=== PATIENT | female | born 1945 | race Caucasian/White ===

== ENCOUNTER 2017-06-06 10:51 | Outpatient (CLI) | payer MEDICARE, OTHER ==
--- NOTE | 2017-06-06 13:15 | XRAY Report ---
DATE OF SERVICE: 06/06/2017 COMPLETE CERVICAL SPINE: 06/06/2017 CLINICAL INDICATION: Pain, radiculopathy. FINDINGS: AP, lateral, bilateral oblique, odontoid views of the cervical spine demonstrate mild degenerative disk and facet disease. There is mild osseous neural foraminal narrowing at C6-C7 on the right. There is no evidence of fracture or subluxation. The prevertebral soft tissues are unremarkable. IMPRESSION: MILD DEGENERATIVE CHANGES, WITH OSSEOUS NEURAL FORAMINAL NARROWING AT C6-C7 ON THE RIGHT. TD: 06/06/2017 14:14
== END 2017-06-06 10:52 | disposition home or self-care (01) ==
LOC: DI 10:51
PROVIDERS: ATTEND Physician Assistant
DX: M50.323 Other cervical disc degeneration at C6-C7 level (principal); M47.9 Spondylosis, unspecified
CPT/HCPCS: 72050

== ENCOUNTER 2017-06-13 15:49 | Outpatient (CLI) | payer MEDICARE, OTHER ==
--- NOTE | 2017-06-13 22:32 | Ultrasound Preliminary Report ---
Exam: US DUPLEX LWR EXT ARTERIAL BILAT IMPRESSION: Patient arterial flow to the ankles bilaterally with no sign of stenosis. [facility] SITE ID: [id number]
--- NOTE | 2017-06-13 22:39 | Ultrasound Report ---
EXAM: BILATERAL LOWER EXTREMITY VENOUS ULTRASOUND EXAM DATE: 06/13/2017 06:14 PM. CLINICAL HISTORY: Pain. Pulses, radiculopathy, site unspec. COMPARISON: None. TECHNIQUE: Real-time sonographic vascular imaging was performed by the brick shader through the lower extremities utilizing both color-flow and Doppler spectral analysis. Multiple tax compliance representative static i mages were saved for review. FINDINGS: Right: Common Femoral Vein (CFV): Normal. CFV-GSV Junction: Normal. Profunda Femoral Vein (PFV): Normal. Femoral Vein (FV) Prox: Normal. Femoral Vein (FV) Mid: Normal. Femoral Vein (FV) Dist: Normal. Popliteal Vein: Normal. Posterior Tibial Veins: Normal. Peroneal Veins: Normal. Left: Common Femoral Vein (CFV): Normal. CFV-GSV Junction: Normal. Profunda Femoral Vein (PFV): Normal. Femoral Vein (FV) Prox: Normal. Femoral Vein (FV) Mid: Normal. Femoral Vein (FV) Dist: Normal. Popliteal Vein: Normal. Posterior Tibial Veins: Normal. Peroneal Veins: Normal. Other: Bilateral posterior tibial and peroneal veins not well seen. IMPRESSION: No evidence for deep venous thrombosis bilaterally. [facility] Referring Provider Line: [phone] SITE ID: [id number]
--- NOTE | 2017-06-13 22:41 | Ultrasound Report ---
EXAM: BILATERAL LOWER EXTREMITY ARTERIAL DOPPLER ULTRASOUND EXAM DATE: 06/13/2017 06:19 PM. CLINICAL HISTORY: Pain. Decreased pulses.. COMPARISON: None. TECHNIQUE: Real-time sonographic vascular imaging was performed by the wood tank erector, utilizing color-f low, Doppler flow, and spectral analysis. Multiple international sales representative static images were saved for review . FINDINGS: Right Leg: CEILING CLEANER: PSV 180 cm/sec. Tri waveform. PSFA: PSV 149 cm/sec. Bi waveform. MSFA: PSV 97 cm/sec. Bi waveform. DSFA: PSV 106 cm/sec. Bi waveform. PFA: PSV 66 cm/sec. Bi waveform. POP: PSV 75 cm/sec. Bi waveform. JUAN MIGUEL: PSV 35 cm/sec. Bi waveform. SENIOR SUSTAINABILITY ADVISOR: PSV 83 cm/sec. Bi waveform. PER: PSV 30 cm/sec. Bi waveform. DPA: PSV 68 cm/sec. Bi waveform. Left Leg: CEILING CLEANER: PSV 122 cm/sec. Bi waveform. PSFA: PSV 89 cm/sec. Bi waveform. MSFA: PSV 97 cm/sec. Bi waveform. DSFA: PSV 99 cm/sec. Bi waveform. PFA: PSV 117 cm/sec. Bi waveform. POP: PSV 79 cm/sec. Bi waveform. JUAN MIGUEL: PSV 58 cm/sec. Bi waveform. SENIOR SUSTAINABILITY ADVISOR: PSV 76 cm/sec. Bi waveform. PER: PSV 50 cm/sec. Bi waveform. DPA: PSV 92 cm/sec. Bi waveform. IMPRESSION: Patent arterial flow to the ankles bilaterally with no sign of stenosis. [facility] Referring Provider Line: [phone] SITE ID: [id number]
== END 2017-06-13 15:50 | disposition home or self-care (01) ==
LOC: DI 15:49
PROVIDERS: ATTEND Physician Assistant
DX: R03.1 Nonspecific low blood-pressure reading (principal); R52 Pain, unspecified
CPT/HCPCS: 93925; 93970

== ENCOUNTER 2017-11-14 11:36 | Outpatient (CLI) | payer MEDICARE, OTHER ==
--- NOTE | 2017-11-14 12:02 | XRAY Report ---
Procedure Date: 11/14/2017 Accession Number: [id number] / [id number] Procedure: XRS - Foot 3 View RT CPT Code: FULL RESULT: EXAM: Foot 3 View RT DATE: 11/14/2017 11:46 AM CLINICAL HISTORY: R FOOT PAIN AND SWELLING COMPARISON: None. TECHNIQUE: 3 views. FINDINGS: Bones: Normal. No fractures or bone lesions. Joints: Mild osteoarthritis. Soft Tissues: Normal. No soft tissue swelling. IMPRESSION: Mild osteoarthritis. No evidence of acute fracture. [facility]
== END 2017-11-14 11:37 | disposition home or self-care (01) ==
LOC: DI.S 11:36
PROVIDERS: ATTEND Nurse Practitioner Family
DX: M19.071 Primary osteoarthritis, right ankle and foot (principal)

== ENCOUNTER 2019-02-13 14:33 | Outpatient (CLI) | payer MEDICARE, OTHER ==
--- NOTE | 2019-02-15 21:01 | XRAY Report ---
Reason: ANESTHESIA OF SKIN Procedure Date: 02/13/2019 Accession Number: [id number] / [id number] Procedure: XR - Cervical Spine 2 View CPT Code: FULL RESULT: EXAM: CERVICAL SPINE RADIOGRAPHY EXAM DATE: 02/13/2019 02:47 PM. CLINICAL HISTORY: ANESTHESIA OF SKIN. COMPARISONS: None. TECHNIQUE: 3 views. FINDINGS: Alignment: Normal. No spondylolisthesis or scoliosis. Bones: The cervical vertebral bodies and posterior elements are well visualized from the skull base through C7-T1. No fractures or bone lesions. Disks: Mild C5-C6, C6-C7 and C7-T1 disk narrowing. Facets: Multi level facet arthropathy is noted. Most severe disease is at mid and lower cervical spine. Soft Tissues: Normal. No prevertebral soft tissue swelling. The visualized lung apices are clear. IMPRESSION: 1. No acute fracture. 2. Normal alignment. Normal prevertebral soft tissues. 3. Multilevel degenerative disk and facet arthropathy. See above. [facility]
== END 2019-02-13 14:34 | disposition home or self-care (01) ==
LOC: DI 14:33
PROVIDERS: ATTEND Physician Assistant
DX: M50.322 Other cervical disc degeneration at C5-C6 level (principal); M47.812 Spondylosis without myelopathy or radiculopathy, cervical region
CPT/HCPCS: 72040

== ENCOUNTER 2019-03-07 11:21 | Outpatient (CLI) | payer MEDICARE, OTHER ==
--- NOTE | 2019-03-10 08:34 | Mammography Report ---
Reason: SCREENING MAMMO Procedure Date: 03/07/2019 Accession Number: [id number] / [id number] Procedure: MGS - Screening Mammo Dig Bilat CPT Code: Final Report FULL RESULT: EXAM: Screening Mammo Dig Bilat DATE: 03/07/2019 2:19 PM CLINICAL HISTORY: Screening encounter. TECHNIQUE: (B) - Bilateral CC and MLO views were obtained. COMPARISON: 10/04/2010 and 09/21/2009. PARENCHYMAL PATTERN: (A) - The breast(s) demonstrate(s) scattered fibroglandular densities. FINDINGS: There has been interval development of a grouping of calcifications in the left upper outer breast approximately 5.7 cm from the nipple. This requires additional spot magnification views as well as ultrasound for clarification. There are no suspicious masses, calcifications, or areas of distortion in the right breast. IMPRESSION: Incomplete examination. BI-RADS category 0. RECOMMENDATION: (ADDMU) - Additional views using both Mammography and Ultrasound recommended. Left breast upper outer quadrant grouping of calcifications. BI-RADS CATEGORY: (0) - Incomplete Examination - need additional evaluation. STANDARD QUALIFYING STATEMENTS: 1. This examination was reviewed with the aid of Computer-Aided Detection (CAD). 2. A negative or benign imaging report should not preclude biopsy if clinically suspicious findings are present. 3. Dense breasts may obscure an underlying neoplasm. 4. This examination was reviewed without the aid of 3D breast imaging (tomosynthesis).
== END 2019-03-07 11:22 | disposition home or self-care (01) ==
LOC: DI.S 11:21
PROVIDERS: ATTEND Physician Assistant
DX: Z12.31 Encounter for screening mammogram for malignant neoplasm of breast (principal); R92.1 Mammographic calcification found on diagnostic imaging of breast
CPT/HCPCS: 77067

== ENCOUNTER 2019-03-27 13:04 | Outpatient (CLI) | payer MEDICARE, OTHER ==
--- NOTE | 2019-03-28 08:22 | Mammography Report ---
Reason: ABN MAMMO - SPEC VIEWS LT Procedure Date: 03/27/2019 Accession Number: [id number] / [id number] Procedure: DAVID - Diagnostic Dig LT CPT Code: Final Report FULL RESULT: EXAM: Diagnostic Dig LT DATE: 03/27/2019 2:00 PM CLINICAL HISTORY: Diagnostic examination. The patient is recalled from screening for increasing calcifications associated with the nodule in the left upper outer breast. TECHNIQUE: (L) - Left CC, spot magnified CC, ML and spot magnified ML images are obtained. Focused left breast ultrasound is performed. COMPARISON: 03/07/2019 through 08/06/2007. PARENCHYMAL PATTERN: (A) - The breast(s) demonstrate(s) scattered fibroglandular densities. FINDINGS: Previously noted calcifications are identified as coarse without pleomorphism on magnification views, typically benign mammographic appearance. Focused ultrasound is performed of the left upper outer quadrant which demonstrates a morphologically preserved normal sized lymph node at the 1:00 position approximately 5 cm from the nipple and otherwise preserved breast parenchyma. Sonographically, no suspicious findings are made. There are no suspicious masses, calcifications, or areas of distortion. IMPRESSION: Benign findings. BI-RADS category 2. RECOMMENDATION: (ANNUAL) - Recommend routine annual screening mammography. BI-RADS CATEGORY: (2) - Benign Findings. STANDARD QUALIFYING STATEMENTS: 1. This examination was not reviewed with the aid of Computer-Aided Detection (CAD). 2. A negative or benign imaging report should not preclude biopsy if clinically suspicious findings are present. 3. Dense breasts may obscure an underlying neoplasm. 4. This examination was reviewed with the aid of 3D breast imaging (tomosynthesis).
== END 2019-03-27 13:05 | disposition home or self-care (01) ==
LOC: DI 13:04
PROVIDERS: ATTEND Physician Assistant
DX: R92.8 Other abnormal and inconclusive findings on diagnostic imaging of breast (principal)
CPT/HCPCS: 76642

== ENCOUNTER 2019-05-21 13:00 | Outpatient (CLI) | payer MEDICARE, OTHER | END 2019-05-21 13:01 | disposition home or self-care (01) | LOC: DI.S 13:00 | PROVIDERS: ATTEND Physician Assistant | DX: Z53.9 Procedure and treatment not carried out, unspecified reason (principal) ==

== ENCOUNTER 2019-05-23 10:54 | Outpatient (CLI) | payer MEDICARE, OTHER ==
--- NOTE | 2019-05-24 10:33 | XRAY Report ---
Reason: R05 COUGH Procedure Date: 05/23/2019 Accession Number: [id number] / [id number] Procedure: XRS - Chest 2 View X-Ray CPT Code: 59157 Final Report FULL RESULT: EXAM: CHEST RADIOGRAPHY EXAM DATE: 05/23/2019 11:10 AM HISTORY: R05 COUGH COMPARISON: XR CHEST PA AND LAT 06/24/2012 4:55 PM TECHNIQUE: Two Views FINDINGS: Lungs/Pleura: No consolidation, edema or pleural effusion. Cardiomediastinal silhouette: Upper limits normal heart size accounting for technique. Other: None. IMPRESSION: No acute disease. [facility]
--- NOTE | 2019-05-24 10:33 | XRAY Report ---
Reason: PAIN IN THORACIC SPINE Procedure Date: 05/23/2019 Accession Number: [id number] / [id number] Procedure: XRS - Thoracic Spine 2 View CPT Code: Final Report FULL RESULT: EXAM: THORACIC SPINE RADIOGRAPHY EXAM DATE: 05/23/2019 11:10 AM HISTORY: PAIN IN THORACIC SPINE. TECHNIQUE: AP, lateral and swimmers, 3 view exam COMPARISON: CHEST 2 VIEW 05/23/2019 11:16 AM XR CHEST PA AND LAT 06/24/2012 4:55 PM FINDINGS: Minimal spinal asymmetry with slight upper thoracic dextroconvexity and minimal lower thoracic levo convexity. Old appearing T12 inferior endplate compression fracture. No other compression deformities noted. Mild mid thoracic right osteophyte formation. Disk spaces are essentially preserved. No significant focal bone lesion. IMPRESSION: Mild spinal asymmetry. Mild osteophytosis. Old T12 compression deformity. No new abnormality. [facility]
== END 2019-05-23 10:55 | disposition home or self-care (01) ==
LOC: DI.S 10:54
PROVIDERS: ATTEND Physician Assistant
DX: R05 Cough (principal); M43.8X4 Other specified deforming dorsopathies, thoracic region; M41.9 Scoliosis, unspecified
CPT/HCPCS: 71046; 72070

== ENCOUNTER 2019-07-05 15:40 | Emergency (ER) | payer MEDICARE, OTHER ==
[2019-07-05 15:50] VITALS: BP 116/65
--- NOTE | 2019-07-05 15:53 | ED Physician Documentation ---
PD HPI URI - Stated complaint Stated Complaint: FLU LIKE SX - Chief complaint Chief Complaint: General - History obtained from History obtained from: Patient - History of Present Illness Timing - onset: How many days ago (few) Timing duration: Days (few) Timing details: Abrupt onset Associated symptoms: Fever, Chills, Productive cough Contributing factors: COPD / asthma (Has been a smoker for a long time. She had previously been told may be COPD. No regular inhalers.). No: Sick contact, Travel Improves by: No: Medication (not improved with the Doxycycline, feeling worse and with now also frequent diarrhea.) Worsened by: Activity, Breathing Recently seen: Clinic Review of Systems Constitutional: reports: Chills, Myalgias, Fatigue. denies: Fever Ears: denies: Ear pain Nose: reports: Congestion. denies: Rhinorrhea / runny nose Throat: denies: Sore throat Cardiac: denies: Chest pain / pressure, Palpitations Respiratory: reports: Dyspnea, Cough, Wheezing GI: reports: Diarrhea (the past day). denies: Abdominal Pain, Nausea, Vomiting, Constipation, Bloody / black stool : denies: Dysuria, Frequency Musculoskeletal: reports: Extremity swelling (mild chronic lower leg edema, right more) Neurologic: reports: Generalized weakness. denies: Focal weakness, Numbness, Near syncope, Altered mental status, Headache PD PAST MEDICAL HISTORY - Past Medical History Cardiovascular: Hypertension, High cholesterol, IA Respiratory: COPD (told she has mild, but no Rx for MDIs. ) Endocrine/Autoimmune: None GI: GERD, Colon polyps : None HEENT: None Psych: None Musculoskeletal: Rheumatoid arthritis, Osteoporosis Derm: None - Past Surgical History Past Surgical History: Yes General: Cholecystectomy, Appendectomy, Colonoscopy Ortho: Knee replacement Cardiovascular: Coronary stent, Cardiac catheterization - Present Medications Home Medications: Ambulatory Orders Medication Instructions Recorded Confirmed Methotrexate Sodium [Methotrexate] 15 mg PO ONCE 02/09/14 03/16/15 Prednisone 5 mg PO DAILY 02/09/14 03/17/15 Aspirin [Jean-Paul] 325 mg PO ONCE 02/12/14 03/16/15 Metoprolol Succinate 12.5 mg PO BID 02/12/14 03/17/15 Multivitamin [Multi Vitamin Daily] 1 each PO DAILY 02/12/14 03/16/15 [place]-3 Fatty Acids [Fish Oil] 1,000 mg PO DAILY 02/12/14 03/16/15 Omeprazole [PriLOSEC] 20 mg PO BID 02/12/14 03/17/15 Albuterol Sulfate [Albuterol 2 puffs IH QID #1 hfa.aer.ad 07/05/19 Sulfate Hfa] Benzonatate [Tessalon Perle] 100 mg PO TID PRN #20 capsule 07/05/19 Diphenoxylate/Atropine [Lomotil] 1 each PO QID PRN #12 tablet 07/05/19 dexAMETHasone [Decadron] 4 mg PO DAILY #5 tablet 07/05/19 - Allergies Allergies/Adverse Reactions: Allergies Allergy/AdvReac Type Severity Reaction Status Date / Time fluvastatin [From Lescol] Allergy Cramps Verified 07/05/19 15:44 - Living Situation Living Situation: reports: Alone Living Arrangement: reports: At home - Social History Does the pt smoke?: Yes Smoking Status: Current every day smoker Does the pt drink ETOH?: Yes Does the pt have substance abuse?: No - Immunizations Immunizations are current?: Yes - POLST Patient has POLST: No PD ED PE NORMAL - Vitals Vital signs reviewed: Yes - General General: Alert and oriented X 3, No acute distress, Well developed/nourished - HEENT HEENT: Ears normal, Moist mucous membranes, Pharynx benign - Neck Neck: Supple, no meningeal sign, No adenopathy - Cardiac Cardiac: RRR. No: No murmur (1/6 systolic murmur left chest not radiating to neck, most likely MR. ) - Respiratory Respiratory: No: Clear bilaterally (tight sounding with scattered mild wheezes. No coarse sounds. ) - Abdomen Abdomen: Soft, Non tender - Derm Derm: Normal color, Warm and dry - Extremities Extremities: No tenderness to palpate, Normal ROM s pain, No calf tenderness / cord, Other (1+ edema in legs, right more than left) Results - Vitals Vitals: Vital Signs - 24 hr 07/05/19 07/05/19 15:45 16:20 Temperature 36.5 C Heart Rate 90 87 Respiratory 20 18 Rate Blood Pressure 116/65 O2 Saturation 96 Oxygen O2 Source Room air - Rads (name of study) chest xray Radiology: Prelim report reviewed (no infiltrates), See rad report PD MEDICAL DECISION MAKING - ED course Complexity details: reviewed results, re-evaluated patient (she feels breathing is easier post nebulizer. ), considered differential (Most likely viral and has had significant diarrhea since starting antibiotic, so will just have her stop it, take antidiarrheal and probiotic, and treat the cough/dyspnea with MDI, decadron and tessalon. ), d/w patient Departure - Departure Disposition: 01 Home, Self Care Clinical Impression: Upper respiratory infection Qualifiers: URI type: unspecified URI Qualified Code(s): J06.9 - Acute upper respiratory infection, unspecified Diarrhea Qualifiers: Diarrhea type: unspecified type Qualified Code(s): R19.7 - Diarrhea, unspecified Condition: Stable Record reviewed to determine appropriate education?: Yes Instructions: ED Upper Resp Infec No Abx Tx Follow-Up: Kay Fournier PA [Primary Care Provider] - Prescriptions: Albuterol Sulfate [Albuterol Sulfate Hfa] 2 puffs IH QID #1 hfa.aer.ad Benzonatate [Tessalon Perle] 100 mg PO TID PRN #20 capsule PRN Reason: Cough dexAMETHasone [Decadron] 4 mg PO DAILY #5 tablet Diphenoxylate/Atropine [Lomotil] 1 each PO QID PRN #12 tablet PRN Reason: Diarrhea Comments: Your chest x-ray appears clear without any signs of pneumonia. These types of coughs and infections are quite often viral anyway and so I think it is reasonable for you to stop the antibiotic doxycycline. The diarrhea likely is being caused by that though could be from the illness anyway. Use albuterol inhaler 2 puffs 4 times a day for the next 7 to 10 days and extra times as needed for wheezing or cough. Decadron steroid for inflammation of the airways to help with breathing and cough as well for the next 5 days. Add benzonatate as needed for cough suppression. Stay well-hydrated. You can still use honey and tea and guaifenesin. Add Lomotil if needed for diarrhea but I would anticipate that to improve over the next day or 2 as you are off the antibiotic. You can add a probiotic supplement for a couple of days as well. Recheck if not improving well over the next few days. Discharge Date/Time: 07/05/19 16:44
[2019-07-05] MEDS ORDERED: ALBUTEROL NEB 2.5 MG/3 ML INH STA (16:05)
[2019-07-05] MEDS ORDERED: DIPHENOX/ATROPINE 2.5/0.025 MG TABLET PO STA (16:06)
[2019-07-05] MEDS ORDERED: CHERRY SYRUP 10 ML UDC PO ONE (16:06)
[2019-07-05] MEDS ORDERED: DEXAMETHASONE 10 MG/ML VIAL PO STA (16:06)
[2019-07-05] MEDS ORDERED: BENZONATATE 100 MG CAPSULE PO STA (16:06)
--- NOTE | 2019-07-05 16:49 | XRAY Report ---
Reason: dyspnea/ cough Procedure Date: 07/05/2019 Accession Number: [id number] / [id number] Procedure: XR - Chest 2 View X-Ray CPT Code: 80577 Final Report FULL RESULT: EXAM: CHEST RADIOGRAPHY EXAM DATE: 07/05/2019 04:18 PM. CLINICAL HISTORY: Dyspnea/ cough. COMPARISON: THORACIC SPINE 2 VIEW 05/23/2019 11:22 AM. TECHNIQUE: 2 views. FINDINGS: Lungs/Pleura: No focal opacities evident. No pleural effusion. No pneumothorax. Normal volumes. Mediastinum: Heart size is normal. There is mild to moderate aortic arch atherosclerotic calcification. Other: None. IMPRESSION: Negative for an acute cardiopulmonary abnormality. [facility]
== END 2019-07-05 16:44 | disposition home or self-care (01) ==
LOC: ED 15:40
DX: J06.9 Acute upper respiratory infection, unspecified (principal); R19.7 Diarrhea, unspecified; F17.200 Nicotine dependence, unspecified, uncomplicated
CPT/HCPCS: 71046; 94640; 99283; 99284; A9270

== ENCOUNTER 2019-07-31 08:00 | Outpatient (CLI) | payer MEDICARE, OTHER ==
[2019-07-31 16:25] LABS: ALBUMIN 3.5 g/dL (3.2-5.5); ALBUMIN/GLOBULIN RATIO 0.9 (1.0-2.2); BILIRUBIN,TOTAL 0.5 mg/dL (0.2-1.0); CALCIUM 9.2 mg/dL (8.5-10.3); TOTAL PROTEIN 7.3 g/dL (6.7-8.2)
== END 2019-07-31 23:59 | disposition home or self-care (01) ==
LOC: LAB.S 08:00
PROVIDERS: ATTEND Physician Assistant
DX: R31.9 Hematuria, unspecified (principal)
CPT/HCPCS: 36415; 80053

== ENCOUNTER 2019-08-04 15:07 | Outpatient (CLI) | payer MEDICARE ==
[2019-08-04] MEDS ORDERED: IOVERSOL 320 100 ML VIAL IVP ONE ×2 (15:13→15:46)
--- NOTE | 2019-08-05 15:59 | CT Report ---
Reason: HEMATURIA Procedure Date: 08/04/2019 Accession Number: [id number] / [id number] Procedure: CT - IVP CPT Code: Final Report FULL RESULT: EXAM: CT ABDOMEN AND PELVIS WITHOUT AND WITH CONTRAST (CT IVP) EXAM DATE: 08/04/2019 03:56 PM. CLINICAL HISTORY: Hematuria. History of bladder cancer. In remission for 10 years. Blood and urine for one month. COMPARISONS: None. TECHNIQUE: Routine helical imaging was performed through the kidneys, ureters and bladder in the precontrast, postcontrast and delayed phase. IV Contrast: 100 mL of Optiray 320. Reconstructions: Coronal and sagittal. In accordance with CT protocol optimization, one or more of the following dose reduction techniques were utilized for this exam: automated exposure control, adjustment of mA and/or KV based on patient size, or use of iterative reconstructive technique. FINDINGS: Lung Bases: Bibasilar scar/atelectasis. Coronary artery calcified plaque. Small hiatal hernia. Aorta valve calcification. Liver: Low-attenuation lesion in the left lobe liver is present measuring 14 mm also more medially in the left lobe measuring 9 mm indeterminate although possibly cysts. Patent portal vein. Gallbladder/Bile Ducts: Status post cholecystectomy. Spleen: Normal. Pancreas: Normal. Adrenal Glands: Normal. Kidneys/Bladder: Right Kidney/Ureter: Nonobstructing 2 mm posterior lower pole right renal calculus. Anterior mid right renal nonobstructing calculus is also seen measuring 4 mm. High attenuation anterior lower pole right renal lesion is noted measuring 7 mm. Smaller low-attenuation lesions are seen in the lower pole of the right kidney approximately 3, the largest measuring 6 mm. No other renal masses. There is distention of the right renal collecting system and segments of the right ureter except for segments of the mid proximal ureter and very distal right ureter although otherwise the right ureter is unremarkable. No focal soft tissue thickening or dilatation is noted on the adequately distended segments. No hydronephrosis. No occlusion. Left Kidney/Ureter: Lower, mid and upper pole nonobstructing left renal calculi are seen, the largest in the posterior midpole measuring 4 mm. No hydronephrosis. Partly exophytic lesion is seen partly within the renal parenchyma with the rounded area in the adjacent fat and a fatty attenuation along the posterior mid lower left kidney measuring in overall size up to 24 mm. This may represent an exophytic angiomyolipoma. Heterogeneous high density lesion is seen measuring 9 mm in the anterior mid left kidney seen on image 36, series 7. Adequate distention of the left renal collecting system and segments of the left ureter through the mid proximal left ureter are seen and appear unremarkable. No distinct filling defect, soft tissue thickening or dilatation is noted of the adequately distended segments. No occlusion. Bladder: No bladder calculi are identified. Urinary bladder is moderate to markedly distended. Delayed images show distention of urinary bladder without clear evidence for focal soft tissue thickening, focal mass or thickening. Peritoneal Cavity/Bowel: Stomach is mildly distended and unremarkable. No small bowel wall thickening or evidence for obstruction. No free air. Small to moderate volume of stool is seen in the colon. Diverticuli are seen largely in the distal colon. No diverticulitis.. No free fluid. No enlarged retroperitoneal or mesenteric lymph nodes. Appendix is not distinctly visualized. Pelvic Organs: No adnexal masses. No pelvic adenopathy. No pelvic free fluid. Vasculature: Vascular calcifications. No aneurysm. Bones: Degenerative changes of the lower thoracic and lumbar spine. Chronic anterior wedging of T12. Grade 1 anterolisthesis of L4 on L5. Lumbar facet arthropathy. Degenerative changes of both hip joints. No acute osseous abnormalities. Mild dextroscoliosis of the lumbar spine. Other: None. IMPRESSION: 1. Bilateral nonobstructing renal calculi. 3. Bilateral renal lesions numerous of which are too small to characterize due to subcentimeter size as well as high attenuation lesions in both kidneys which are indeterminate due to size although warrant continued surveillance with follow-up renal ultrasound in 9-12 months. Left renal angiomyolipoma also present. No other large renal masses are identified. 3. No evidence for bladder, renal collecting system or ureteral lesion noting that all segments of both ureters are not optimally distended. 4. Moderate to marked urinary bladder distention. 5. Status post cholecystectomy. 6. Colonic diverticulosis. No diverticulitis. [facility]
== END 2019-08-04 15:08 | disposition home or self-care (01) ==
LOC: DI 15:07
PROVIDERS: ATTEND Physician Assistant
DX: N20.0 Calculus of kidney (principal); N28.9 Disorder of kidney and ureter, unspecified; D17.71 Benign lipomatous neoplasm of kidney; K57.30 Diverticulosis of large intestine without perforation or abscess without bleeding; N32.89 Other specified disorders of bladder; R31.9 Hematuria, unspecified
CPT/HCPCS: 74178; Q9967

== ENCOUNTER 2019-08-08 21:50 | Outpatient (CLI) | payer MEDICARE | END 2019-08-08 21:51 | disposition critical access hospital (66) | LOC: EMS 21:50 | PROVIDERS: ATTEND Surgery | DX: R42 Dizziness and giddiness (principal); R11.2 Nausea with vomiting, unspecified; R55 Syncope and collapse; Z20.828 Contact with and (suspected) exposure to other viral communicable diseases | CPT/HCPCS: A0425; A0429 ==

== ENCOUNTER 2019-08-08 22:12 | Emergency (ER) | payer MEDICARE ==
--- NOTE | 2019-08-08 22:05 | ED Physician Documentation ---
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 She sat still and the sensation passed but she then walked outside to smoke a cigarette and symptoms suddenly recurred when she again turned her head to the side. She did not pass out nor feel like she was going to pass out. She called 911 due to the dizziness and nausea and feeling like she cannot walk or turn her head without becoming dizzy. She denies fever on my HPI. She says that her sister had fever and some URI symptoms 2.5 weeks ago and tested positive for COVID 1.5 weeks ago. However, she does not live with her sister and she describes limited contact with her. Review of Systems Constitutional: denies: Fever, Chills, Sweats Eyes: reports: Reviewed and negative Ears: denies: Loss of hearing, Ear pain, Drainage/discharge, Tinnitus/ringing Nose: reports: Reviewed and negative Throat: denies: Sore throat Cardiac: reports: Reviewed and negative Respiratory: reports: Reviewed and negative GI: reports: Nausea. denies: Abdominal Pain Neurologic: reports: Reviewed and negative PD PAST MEDICAL HISTORY - Past Medical History Past Medical History: Yes - Present Medications Home Medications: Ambulatory Orders Medication Instructions Recorded Confirmed Methotrexate Sodium [Methotrexate] 15 mg PO ONCE 02/09/14 03/16/15 Prednisone 5 mg PO DAILY 02/09/14 03/17/15 Aspirin [Jean-Paul] 325 mg PO ONCE 02/12/14 03/16/15 Metoprolol Succinate 12.5 mg PO BID 02/12/14 03/17/15 Multivitamin [Multi Vitamin Daily] 1 each PO DAILY 02/12/14 03/16/15 Rut[place]-3 Fatty Acids [Fish Oil] 1,000 mg PO DAILY 02/12/14 03/16/15 Omeprazole [PriLOSEC] 20 mg PO BID 02/12/14 03/17/15 Albuterol Sulfate [Albuterol 2 puffs IH QID #1 hfa.aer.ad 07/05/19 Sulfate Hfa] Benzonatate [Tessalon Perle] 100 mg PO TID PRN #20 capsule 07/05/19 Diphenoxylate/Atropine [Lomotil] 1 each PO QID PRN #12 tablet 07/05/19 dexAMETHasone [Decadron] 4 mg PO DAILY #5 tablet 07/05/19 LORazepam [Lorazepam] 0.5 mg PO TID PRN #14 tablet 08/09/19 Meclizine HCl 25 mg PO Q6HR PRN #20 tablet 08/09/19 Ondansetron Odt [Zofran] 4 mg TL Q6H PRN #10 tablet 08/09/19 - Allergies Allergies/Adverse Reactions: Allergies Allergy/AdvReac Type Severity Reaction Status Date / Time fluvastatin [From Lescol] Allergy Cramps Verified 07/05/19 15:44 - Living Situation Living Arrangement: reports: At home - Social History Does the pt smoke?: Yes PD ED PE NORMAL - Vitals Vital signs reviewed: Yes - General General: Alert and oriented X 3, No acute distress, Well developed/nourished - HEENT HEENT: PERRL, EOMI, Moist mucous membranes, Pharynx benign - Neck Neck: Supple, no meningeal sign - Cardiac Cardiac: RRR, No murmur - Respiratory Respiratory: No respiratory distress, Clear bilaterally - Abdomen Abdomen: Soft, Non tender Results - Vitals Vitals: Vital Signs - 24 hr 08/08/19 08/08/19 08/09/19 22:48 22:53 00:30 Temperature 37.1 C Heart Rate 98 78 90 Respiratory 18 18 18 Rate Blood Pressure 172/87 H 172/87 H 181/88 H O2 Saturation 93 93 92 08/09/19 08/09/19 01:34 03:13 Temperature Heart Rate 91 100 Respiratory 16 18 Rate Blood Pressure 124/64 168/84 H O2 Saturation 92 94 Oxygen O2 Source Room air - Labs Labs: Laboratory Tests 08/08/19 08/08/19 22:30 22:30 WBC 11.7 H RBC 4.27 Hgb 14.1 Hct 42.1 MCV 98.6 MCH 33.0 H MCHC 33.5 RDW 13.7 Plt Count 392 MPV 9.2 Neut # (Auto) 5.0 Lymph # (Auto) 5.6 [place] # (Auto) 0.8 Eos # (Auto) 0.2 Baso # (Auto) 0.1 Absolute Nucleated RBC 0.00 Nucleated RBC % 0.0 Manual Slide Review Indicated Platelet Estimate NORMAL (130-450,000) Platelet Morphology NORMAL APPEARANCE RBC Morph Micro Appear NORMAL APPEARANCE Sodium 135 Potassium 2.8 L Chloride 98 L Carbon Dioxide 25 Anion Gap 12.0 BUN 11 Creatinine 1.0 Estimated GFR (MDRD) 54 L Glucose 122 H Calcium 9.0 PD MEDICAL DECISION MAKING - ED course Complexity details: reviewed results, re-evaluated patient, considered differential, d/w patient Departure - Departure Disposition: Home, Self Care Clinical Impression: Vertigo Condition: Good Instructions: Meclizine, ED Vertigo Unspecified Follow-Up: Kay Fournier PA [Primary Care Provider] - Prescriptions: Meclizine HCl 25 mg PO Q6HR PRN #20 tablet PRN Reason: Vertigo LORazepam [Lorazepam] 0.5 mg PO TID PRN #14 tablet PRN Reason: Vertigo Ondansetron Odt [Zofran] 4 mg TL Q6H PRN #10 tablet PRN Reason: Nausea / Vomiting Discharge Date/Time: 08/09/19 03:13
[2019-08-08] MEDS ORDERED: MECLIZINE 12.5 MG TABLET PO STA (22:33)
[2019-08-08] MEDS ORDERED: SODIUM CHLORIDE 0.9% 1,000 ML IV STA (22:33)
[2019-08-08 22:52] LABS: BASOPHILS # (AUTO) 0.1 10^3/uL (0.0-0.1); BASOPHILS % (AUTO) 0.4 %; EOSINOPHILS # (AUTO) 0.2 10^3/uL (0.0-0.7); EOSINOPHILS % (AUTO) 1.5 %; HGB - HEMOGLOBIN 14.1 g/dL (12.0-16.0); LYMPHOCYTES # (AUTO) 5.6 10^3/uL (1.5-3.5); LYMPHOCYTES % (AUTO) 47.7 %; MEAN CORPUSCULAR HGB CONC 33.5 g/dL (32.0-36.0); MEAN CORPUSCULAR VOLUME 98.6 fL (81.0-99.0); MEAN PLATELET VOLUME 9.2 fL (7.9-10.8); MONOCYTES # (AUTO) 0.8 10^3/uL (0.0-1.0); MONOCYTES % (AUTO) 6.6 %; NEUTROPHILS % (AUTO) 43.3 %; PLT - PLATELET COUNT 392 10^3/uL (130-450); RED BLOOD COUNT 4.27 10^6/uL (4.20-5.40); RED CELL DISTRIBUTION WIDTH 13.7 % (12.0-15.0); WHITE BLOOD COUNT 11.7 x10^3/uL (4.8-10.8)
[2019-08-08 23:06] LABS: PLATELET ESTIMATE, MANUAL NORMAL (130-450,000) (NORMAL); PLATELET MORPHOLOGY NORMAL APPEARANCE (NORMAL); RBC MORPHOLOGY (MULTIPLE) NORMAL APPEARANCE (NORMAL)
[2019-08-09] MEDS ORDERED: LORazepam 1 MG TABLET PO STA (02:53)
[2019-08-09 03:14] VITALS: BP 168/84
== END 2019-08-09 03:13 | disposition home or self-care (01) ==
LOC: EDBD → EDUNIT# → ED 22:12
DX: R42 Dizziness and giddiness (principal)
CPT/HCPCS: 80048; 85025; 96360; 99284; A9270; J8499

== ENCOUNTER 2019-09-12 08:49 | Outpatient (CLI) | payer MEDICARE ==
--- NOTE | 2019-09-13 04:44 | Ultrasound Report ---
Reason: ABNORMAL LEVELS ENZYMES Procedure Date: 09/12/2019 Accession Number: [id number] / [id number] Procedure: US - Abdomen Limited CPT Code: Final Report FULL RESULT: EXAM: ABDOMEN ULTRASOUND LIMITED, RUQ EXAM DATE: 09/12/2019 09:25 AM. CLINICAL HISTORY: Abnormal liver enzymes. Status post cholecystectomy. COMPARISON: ABDOMEN 06/24/2010 10:59 AM IVP 08/04/2019 3:36 PM. TECHNIQUE: Real-time scanning was performed with static images obtained. FINDINGS: Liver: Echogenic and heterogeneous. Left lobe septated cyst measuring 1.4 cm. 14.3 cm. Main portal vein flow: Hepatopetal. Gallbladder: Status post cholecystectomy. Biliary System: CBD measures 4 mm. No intrahepatic or extrahepatic ductal dilatation. Other: Right kidney measures 10.2 cm. No hydronephrosis seen. Possible nonobstructing stone versus vascular calcification measuring 6 x 4 x 5 mm. Inferior vena cava is patent where seen. IMPRESSION: 1. Status post cholecystectomy. No biliary dilatation seen. 2. Suspect fatty liver. 3. Possible nonobstructing right renal stone. RADIA
== END 2019-09-12 08:50 | disposition home or self-care (01) ==
LOC: DI 08:49
PROVIDERS: ATTEND Nurse Practitioner Family
DX: R74.8 Abnormal levels of other serum enzymes (principal); Z90.49 Acquired absence of other specified parts of digestive tract
CPT/HCPCS: 76705

== ENCOUNTER 2020-03-11 07:00 | Outpatient (CLI) | payer MEDICARE | END 2020-03-11 23:59 | disposition home or self-care (01) | LOC: LAB.R 07:00 | PROVIDERS: ATTEND Physician Assistant | DX: Z20.828 Contact with and (suspected) exposure to other viral communicable diseases (principal) ==

== ENCOUNTER 2020-05-05 | Outpatient (CLI) | payer MEDICARE | END 2020-05-05 20:08 | disposition EMS.NT ==

== ENCOUNTER 2020-05-05 21:16 | Emergency (ER) | payer MEDICARE ==
[2020-05-05] MEDS ORDERED: KETOROLAC 60 MG/2 ML VIAL IM STA (23:15)
[2020-05-06] MEDS ORDERED: BUPIVACAINE 0.5% PF 10 ML VIAL SUBQ STA (00:13)
[2020-05-06] MEDS ORDERED: BUFFERED LIDOCAINE 10 ML SYRINGE SUBQ STA (00:13)
--- NOTE | 2020-05-06 01:00 | ED Physician Documentation ---
PD HPI LOWER EXT INJURY - Stated complaint Stated Complaint: GLF, LT LEG LACERATION - Chief complaint Chief Complaint: Laceration - History obtained from History obtained from: Patient - History of Present Illness PD HPI LOW EXT INJURY LOCATION: Left, Lower leg Type of injury: Fall, Puncture wound Timing - onset: Today Timing - duration: Hours Timing - details: Abrupt onset, Still present Improved by: Rest, Immobilization Worsened by: Moving, Palpating Associated symptoms: No: Weakness, Numbness, Tingling Contributing factors: No: Anticoagulated Similar symptoms before: Diagnosis (calf laceration) Recently seen: Not recently seen - Additional information Additional information: 74-year-old female with a history of rheumatoid arthritis who is on Remicade has had a few drinks tonight without her neighbors was frightened when she was outside on some steps and slipped down the steps landing on her buttocks lacerated her calf hitting the back of her head without loss of consciousness and she has some pain in her right fifth digit as well. She has come to the emergency department for repair of the large laceration to her calf. The most pain that she has is in the buttocks and there is a bruise across the buttocks. Review of Systems Constitutional: denies: Fever Eyes: denies: Decreased vision Ears: denies: Ear pain Nose: denies: Congestion Throat: denies: Sore throat Cardiac: denies: Chest pain / pressure, Palpitations Respiratory: denies: Dyspnea GI: denies: Abdominal Pain, Vomiting PD PAST MEDICAL HISTORY - Past Medical History Past Medical History: Yes Cardiovascular: Hypertension, High cholesterol, [place] Respiratory: COPD Endocrine/Autoimmune: None GI: GERD, Colon polyps : None HEENT: None Psych: None Musculoskeletal: Rheumatoid arthritis, Osteoporosis Derm: None - Past Surgical History Past Surgical History: Yes General: Cholecystectomy, Appendectomy, Colonoscopy Ortho: Knee replacement Cardiovascular: Coronary stent, Cardiac catheterization - Present Medications Home Medications: Ambulatory Orders Medication Instructions Recorded Confirmed Prednisone 5 mg PO DAILY 02/09/14 05/05/20 metHOTREXate sodium [Methotrexate] 15 mg PO ONCE 02/09/14 05/05/20 Aspirin [Jean-Paul] 325 mg PO ONCE 02/12/14 05/05/20 Metoprolol Succinate 12.5 mg PO BID 02/12/14 05/05/20 Multivitamin [Multi Vitamin Daily] 1 each PO DAILY 02/12/14 05/05/20 Ruffin-3 Fatty Acids [Fish Oil] 1,000 mg PO DAILY 02/12/14 05/05/20 Omeprazole [PriLOSEC] 20 mg PO BID 02/12/14 05/05/20 Albuterol Sulfate [Albuterol 2 puffs IH QID #1 hfa.aer.ad 07/05/19 05/05/20 Sulfate Hfa] Benzonatate [Tessalon Perle] 100 mg PO TID PRN #20 capsule 07/05/19 Diphenoxylate/Atropine [Lomotil] 1 each PO QID PRN #12 tablet 07/05/19 LORazepam [Lorazepam] 0.5 mg PO TID PRN #14 tablet 08/09/19 Meclizine HCl 25 mg PO Q6HR PRN #20 tablet 08/09/19 05/05/20 - Allergies Allergies/Adverse Reactions: Allergies Allergy/AdvReac Type Severity Reaction Status Date / Time fluvastatin [From Lescol] Allergy Cramps Verified 05/05/20 21:19 - Social History Does the pt smoke?: Yes Smoking Status: Current every day smoker Does the pt drink ETOH?: Yes Does the pt have substance abuse?: No - Immunizations Immunizations are current?: No Immunizations: TDAP >10years/unknown - POLST Patient has POLST: No PD ED PE NORMAL - Vitals Vital signs reviewed: Yes (hypertensive ) - General General: Alert and oriented X 3, No acute distress, Well developed/nourished - HEENT HEENT: PERRL, EOMI, Other (small superficial laceration to the left occipital parietal area 1cm ) - Neck Neck: Supple, no meningeal sign, No bony TTP - Cardiac Cardiac: RRR, No murmur - Respiratory Respiratory: No respiratory distress, Clear bilaterally, Other (no chest wall tenderness) - Abdomen Abdomen: Normal bowel sounds, Soft, Non tender, Non distended, No organomegaly - Back Back: No CVA TTP, No spinal TTP, Other (over the left buttock cheek is a bruise/abrasion with tenderness. There is tenderness over the sacrum and coccyx as well. ) - Derm Derm: Normal color, Warm and dry, No rash - Extremities Extremities: No deformity, No edema, Other (There is a 17cm "J" shaped laceration to the posterior left calf extending from the lateral superior portion of the calf to the medial lower portion of the calf. There is a thick flap with the facia of the muscle un-interrupted. distal n/v intact. ) - Neuro Neuro: Alert and oriented X 3, supervisor cab 2-12 intact, No motor deficit, No sensory deficit, Normal speech Eye Opening: Spontaneous Motor: Obeys Commands Verbal: Oriented GCS Score: 15 - Psych Psych: Normal mood, Normal affect Results - Vitals Vitals: Vital Signs - 24 hr 05/05/20 05/05/20 05/05/20 21:20 21:24 23:36 Temperature 36.5 C 36.5 C 36.5 C Heart Rate 100 100 82 Respiratory 16 16 16 Rate Blood Pressure 147/71 H 147/71 H 119/56 L O2 Saturation 94 94 97 05/06/20 01:25 Temperature 36.5 C Heart Rate 80 Respiratory 16 Rate Blood Pressure 120/60 O2 Saturation 97 Oxygen O2 Source Room air - Rads (name of study) sacrum and coccyx Radiology: Prelim report reviewed (Impression: No acute findings.), EMP read indepedently, See rad report Procedures - Laceration (location) left calf Length in cm: 17 Wound type: Curved, Flap, Clean. No: Into muscle Neurovascular status: Sensory intact, Motor intact, Vascular intact Anesthesia: Lidocaine 1%, Marcaine 0.5%, With bicarb Wound Preparation: Hibiclens, Irrigated copiously NS, Wound explored, To the base, Multiple flaps aligned Skin layer closure: Nylon, Interrupted, Size #-0 - enter number (4-0), Sutures - enter # (17) Other: Patient tolerated well, No complications, Neurovascular intact, Dressing applied, Tetanus UTD PD MEDICAL DECISION MAKING - ED course Complexity details: reviewed old records, reviewed results, re-evaluated patient, considered differential, d/w patient ED course: 74-year-old female has had a fall and again has lacerated her left calf. I have taken care of this patient for the same problem 6 years ago with a anterior calf laceration. That laceration took 3 months to heal. I discussed again with the patient the problem with blood supply to the calf this laceration is on the posterior aspect I expect this to heal much more easily. She does have some macerated tissue with some superficial skin loss at the apex of the laceration otherwise the flap covers the wound well. She has a bruise to her buttocks pain to her sacrum and coccyx without evidence of fracture and an abrasion to her scalp. She has an injury to her left fifth digit. X-rays without evidence of fracture the patient is administered Toradol for pain control and her wounds are closed with 4-0 nylon. She will indeed have sutures removed in about 10 days. Departure - Departure Disposition: 01 Home, Self Care Clinical Impression: Laceration of left calf without complication Qualifiers: Encounter type: initial encounter Qualified Code(s): S81.812A - Laceration without foreign body, left lower leg, initial encounter Superficial laceration of scalp Qualifiers: Encounter type: initial encounter Qualified Code(s): S01.01XA - Laceration without foreign body of scalp, initial encounter Contusion of coccyx Qualifiers: Encounter type: initial encounter Qualified Code(s): S30.0XXA - Contusion of lower back and pelvis, initial encounter Contusion of left hand including fingers Qualifiers: Encounter type: initial encounter Qualified Code(s): S60.222A - Contusion of left hand, initial encounter Condition: Stable Instructions: ED Contusion Back, ED Laceration Small Superf No Sutr, ED Laceration Ext Sutr Stap Tape, ED Sprain Hand Follow-Up: Kay Fournier PA [Provider Admit Priv/Credential] - Comments: sutures will need to be removed in 10 days. Discharge Date/Time: 05/06/20 01:25
[2020-05-06] MEDS ORDERED: HYDROcod/ACET 5/325 Prepack 4 PO STA (01:02)
[2020-05-06 01:26] VITALS: BP 120/60
--- NOTE | 2020-05-06 08:19 | XRAY Report ---
PROCEDURE: Sacrum/Coccyx INDICATIONS: fall tailbone pain TECHNIQUE: 3 views of the sacrum and coccyx acquired. COMPARISON: None FINDINGS: Bones: No fractures or dislocations. No suspicious bony lesions. There are degenerative changes in the lower lumbar spine with facet arthrosis. Mild anterolisthesis of L4 over L5. The aorta is heavil y calcified with no aneurysmal dilatation. Soft tissues: Visualized bowel gas pattern is normal. No suspicious soft tissue densities. IMPRESSION: No acute traumatic abnormality of the sacrum or coccyx. Reviewed by: Gordon Pack on 05/06/2020 8:18 AM [facility] Approved by: Gordon Pack on 05/06/2020 8:18 AM [facility] Station ID: [id number]
--- NOTE | 2020-05-06 08:25 | XRAY Report ---
PROCEDURE: Hand 3 View LT INDICATIONS: 5th digit PIP joint pain TECHNIQUE: 4 views of the hand(s) acquired. COMPARISON: None FINDINGS: Bones: No fractures or dislocations. Hypertrophic degenerative changes in the interphalangeal joints and first carpometacarpal joint are relatively severe and consistent with severe osteoarthritis. Soft tissues: No suspicious soft tissue calcifications. IMPRESSION: 1. No acute abnormality. 2. Findings consistent with severe osteoarthritis. Findings correspond with preliminary findings. Reviewed by: Gordon Pack on 05/06/2020 8:23 AM [facility] Approved by: Gordon Pack on 05/06/2020 8:23 AM [facility] Station ID: [id number]
== END 2020-05-06 01:25 | disposition home or self-care (01) ==
LOC: ED 21:16
DX: S81.812A Laceration without foreign body, left lower leg, initial encounter (principal); S01.01XA Laceration without foreign body of scalp, initial encounter; S60.222A Contusion of left hand, initial encounter; S30.0XXA Contusion of lower back and pelvis, initial encounter; W10.9XXA Fall (on) (from) unspecified stairs and steps, initial encounter; I10 Essential (primary) hypertension; M06.9 Rheumatoid arthritis, unspecified; F17.200 Nicotine dependence, unspecified, uncomplicated
CPT/HCPCS: 12005; 99284

== ENCOUNTER 2021-03-24 08:00 | Outpatient (CLI) | payer MEDICARE, OTHER | END 2021-03-24 23:59 | disposition home or self-care (01) | LOC: LAB.S 08:00 | PROVIDERS: ATTEND Physician Assistant | DX: L03.116 Cellulitis of left lower limb (principal) | CPT/HCPCS: 87070; 87077; 87181; 87205 ==

== ENCOUNTER 2022-08-04 15:57 | Outpatient (CLI) | payer MEDICARE, OTHER ==
--- NOTE | 2022-08-04 16:21 | XRAY Report ---
PROCEDURE: Ribs w/PA Chest RT INDICATIONS: RIGHT RIB CONTUSION TECHNIQUE: 3 views of the right ribs were acquired, along with a single view chest. COMPARISON: none FINDINGS: Surgical changes and devices: None. Bones and chest wall: No fractures or dislocations. No suspicious bony lesions. Overlying soft tis sues appear unremarkable. Lungs and pleura: No pleural effusions or pneumothorax. Lungs appear clear. Mediastinum: Mediastinal contours appear normal. Heart size is normal. IMPRESSION: No visualized acute fracture or dislocation. However, occult injury cannot be excluded. Recommend cecy rt interval imaging follow-up in 7-10 days as clinically indicated for additional evaluation. Reviewed by: Yanci Kim MD on 08/04/2022 4:19 PM PDT Approved by: Yanci Kim MD on 08/04/2022 4:19 PM PDT Station ID: [id number]
== END 2022-08-04 23:59 | disposition home or self-care (01) ==
LOC: DI.S 15:57
PROVIDERS: ATTEND Physician Assistant Medical
DX: S20.211A Contusion of right front wall of thorax, initial encounter (principal)